=== PATIENT | female | born 1990 | race Caucasian/White ===

== ENCOUNTER 2019-09-16 06:54 | Observation (INO) ==
--- NOTE | 2019-09-04 09:51 | PAT Medication Instructions ---
Medication Instructions Date of Service September 04, 2019 Home Medications Medication Instructions Recorded dicyclomine 10 mg capsule 10 mg PO QID PRN #120 cap 08/29/19 multivitamin 1 tab PO QAM dicyclomine 10 mg capsule 10 mg PO QID PRN DO NOT take the morning of surgery multivitamin 1 tab PO QAM dicyclomine 10 mg capsule 10 mg PO QID PRN Other Notes If you have any questions please call us at [phone] or [phone] or [phone] or [phone]
--- NOTE | 2019-09-05 15:20 | Anesthesiology Consultation ---
Date of Service September 05, 2019 Assessment & Plan (1) Encounter for pre-operative examination: - Check test AM DOS Chart Review Chart Review: Pending: Refer to Additional Notes / Consult section (pending p reop testing (T&S)) and Patient seen in Pre Admission Testing Teaching & Discussion Pre-Anesthesia Teaching/Discussion Notes: Instructed NPO after midnight before surgery,except medications with 15 cc of water. Medication instructions provided according to the PAT guidelines. History Surgery Operation Date: 09/16/19 07:30 Proposed Procedures p Robotic Total Laparoscopic Hysterectomy - Brooke De La Cruz MD Height/Weight Height: 5 ft 6 in Weight: 81.4 kg Allergies Allergy/AdvReac Type Severity Reaction Status Date / Time No Known Drug Allergies Allergy Verified 09/02/19 08:47 Medications Home Medications Medication Instructions Recorded Confirmed Last Taken multivitamin 1 tab PO QAM 07/17/19 09/02/19 Unknown dicyclomine 10 mg capsule 10 mg PO QID PRN #120 cap 08/29/19 09/02/19 Unknown Past Medical History Medical History History of blood transfusion 2009 after childbirth IBS (irritable bowel syndrome) Kidney stones hx/passed without intervention Menorrhagia Migraine Exercise / Class Metabolic Activity II 4-5 Yardwork/Stairs/Walk up hill Past Family History Family History Brother Family history of reaction to anesthesia combative with anesthesia Grandfather (Maternal) Family history of diabetes mellitus Aunt Family history of diabetes mellitus Uncle Family history of diabetes mellitus Grandfather (Paternal) Family history of diabetes mellitus Past Surgical History Surgical History History of incision and drainage infected wisdom tooth History of surgical removal of ganglion cyst left wrist History of wisdom tooth extraction Hx of colonoscopy Hx of esophagogastroduodenoscopy Status post correction of deviated nasal septum Past Anesthesia History No Hx of Anesthesia Complications and No Family Hx of Anesthesia Complications History of PONV No Hx of PONV and Hx of Motion Sickness (occasional ) Social History Smoking Status: Never smoker Do You Dip or Chew Tobacco: No Hx Alcohol Use: No Alcohol type: wine and hard liquor alcohol intake frequency: holidays/special occasions only Hx Substance Use: No substance use type: does not use Review of Systems Patient denies chest pain, shortness of breath, dyspnea on exertion, reflux, cough, wheezing, palpitations. Physical Exam Vital Signs VITALS BP 100/67 P 73 TEMP 98.3 SP02 96%RA RESP 18 PHYSICAL Full neck and c-spine range of motion. Full TMJ range of motion. TMD 4 finger breaths Mallampati Score 2 Dentition: missing molars Lungs: clear throughout to auscultation Cardiac: regular rate and rhythm, no murmurs noted Spine: normal Extremities: no edema Testing Laboratory Results 08/29/19 WBC 6.88 H/H 13.2/39.1 PLT 269
[~2019-09-16 06:54] MED LIST: CEFAZOLIN 2000MG 2,000 MG/15 ML SYR IV SCH; LACTATED RINGER'S 1,000 ML IV SCH
[2019-09-16 08:26] LABS: Pregnancy Test, Serum Negative (Negative)
[2019-09-16] MEDS ORDERED: LIDOCAINE HCL 2% 2 ML VIAL/AMP(20MG/ML) INFIL ONE (08:35)
[2019-09-16] MEDS ORDERED: MIDAZOLAM HCL 1 MG/ML 2ML VIAL ONE (08:35)
[2019-09-16] MEDS ORDERED: ONDANSETRON INJ 2 MG/ML 2 ML VIAL ONE ×2 (08:35→10:48)
[2019-09-16] MEDS ORDERED: ROCURONIUM BROMIDE 10 MG/ML 5 ML VIAL ONE (08:35)
[2019-09-16] MEDS ORDERED: fentaNYL citrate 100 MCG/2 ML VIAL ONE (08:35)
[2019-09-16] MEDS ORDERED: PROPOFOL IV EMULSION 10 MG/ML 20 ML VIAL IV ONE (08:35)
[2019-09-16] MEDS ORDERED: LARYING-O-JET KIT (LTA) ONE (08:35)
--- NOTE | 2019-09-16 08:42 | History & Physical Bridge Note ---
Date of Service September 16, 2019 History & Physical Bridge Note I have examined the patient, reviewed the History & Physical and in the interval since the performance of the History & Physical I have noted the following changes of clinical significance: no changes noted
[2019-09-16] MEDS ORDERED: KETOROLAC 30 MG/ML VIAL IV PRN (08:43)
[2019-09-16] MEDS ORDERED: ACETAMINOPHEN 325 MG TAB PO PRN (08:43)
[2019-09-16] MEDS ORDERED: MEPERIDINE HCL 25 MG/ML CARP IV PRN (08:43)
[2019-09-16] MEDS ORDERED: ONDANSETRON INJ 2 MG/ML 2 ML VIAL IV PRN ×2 (08:43→08:58)
[2019-09-16] MEDS ORDERED: IBUPROFEN 600 MG TAB PO PRN (08:43)
[2019-09-16] MEDS ORDERED: MEPERIDINE HCL 50 MG/ML CARP IV PRN (08:43)
[2019-09-16] MEDS ORDERED: OXYCODONE/ACETAMINOPHEN 5mg/325mg TAB PO PRN ×2 (08:43)
[2019-09-16] MEDS ORDERED: LACTATED RINGER'S 1,000 ML IV SCH (08:45)
[2019-09-16] MEDS ORDERED: METHYLENE BLUE 0.5% 10 ML VIAL ONE (08:45)
[2019-09-16] MEDS ORDERED: ACETAMINOPHEN 1000 MG/100 ML IV IV ONE (08:45)
[2019-09-16] MEDS ORDERED: HYDROmorphone INJ 1 MG/ML SYRINGE IV PRN (08:58)
[2019-09-16] MEDS ORDERED: LABETALOL HCL IV 5 MG/ML 20ML IV PRN (08:58)
[2019-09-16] MEDS ORDERED: NALOXONE HCL 0.4 MG/1 ML VIAL/CARP IV PRN (08:58)
[2019-09-16] MEDS ORDERED: PROMETHAZINE HCL 12.5 MG in SODIUM CHLORIDE 0.9% 50 ML IV PRN (08:58)
[2019-09-16] MEDS ORDERED: ATROPINE SULFATE 0.1 MG/ML 10ML SYR IV PRN (08:58)
[2019-09-16] MEDS ORDERED: FLUMAZENIL 0.1 MG/1 ML 10 ML VIAL IV PRN (08:58)
[2019-09-16] MEDS ORDERED: HYDROmorphone INJ 2 MG/ML SYR/VIAL ONE (09:24)
--- NOTE | 2019-09-16 10:22 | Operative Report ---
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 The bladder was emptied via placement of perez catheter. A V-Care uterine manipulator was placed in the usual manner. Attention was then turned to the abdomen where optical entry was made at the umbilicus without complication. The abdomen was insufflated and the patient was placed in steep Trendelenburg. Under direct visualization, right and left lower quadrant ports were placed without complication. Survey of the abdomen revealed Small uterus, bilateral normal- appearing tubes, normal R ovary, left ovary with involuting corpus luteum (based on appearance and patient being CD2) with adhesion to omental fat on both the L ovary and the L pelvic sidewall; peritoneal windows and thick white patches on peritoneum suggestive of endometriosis. The robot was then docked and surgery proceeded with the surgeon at the console. The ureter was identified on each side and traced along its course into the pelvis. First the omental adhesions were sharply and carefully dissected free of the L pelvic sidewall and ovary, ensuring good access to the structures of interest. Each fallopian tube in turn was elevated, dissected off the mesosalpinx and left attached to the uterine cornu. Each utero-ovarian ligament was ligated and then divided. Each round ligament was ligated and then divided. The anterior leaflets of the broad ligament were dissected to create a bladder flap which was gently mobilized downward below the colpotomy cup ridge. Each uterine artery was skeletonized, ligated, and then divided. Circumferential colpotomy was then completed following the colpotomy cup guide. The cervix, uterus and bilateral tubes were then retrieved en bloc via the vagina. The vaginal cuff was then closed using V-Pia suture in the typical running non-locked fashion. The needle was retrieved through a trocar, and suction/irrigation was then used to remove any debris and ensure good hemostasis at all working sites. After administration of IV Methylene Blue dye, cystoscopy was then utilized to examine the bladder dome which was free of suture or injury. The ureteral orifices were observed until a good strong jet of blue stained urine was seen from each. The bladder was then drained. The robot was then undocked, and abdominal trocar sites were closed using a UR6 at the umbilical fascia and 4-0 monocryl at each of the skin incisions. A dermabond dressing was applied to each site. A final vaginal exam ensured no materials were present in the vagina and the cuff was intact. The patient was then transferred in stable condition to the recovery room. I attest to the content of the Intraoperative Record and any orders documented therein. Any exceptions are noted below.
[2019-09-16] MEDS ORDERED: METOCLOPRAMIDE HCL INJ 5 MG/ML 2 ML VIAL ONE (10:48)
[2019-09-16] MEDS ORDERED: DEXAMETHASONE SOD INJ 4 MG/ML VIAL ONE (10:48)
[2019-09-16] MEDS ORDERED: raNITIdine HCl 25 MG/ML VIAL IV ONE (10:48)
[2019-09-16] MEDS ORDERED: GLYCOPYRROLATE 0.2 MG/ML VIAL ONE (10:48)
[2019-09-16] MEDS ORDERED: KETOROLAC 30 MG/ML VIAL ONE (10:48)
[2019-09-16] MEDS ORDERED: NEOSTIGMINE METHYLSULFATE 5 MG/5 ML SYR ONE (10:48)
--- NOTE | 2019-09-16 11:12 | Anesthesiology Progress Note ---
Date of Service September 16, 2019 Anesthesia Post Procedure Vital Signs Vital Signs: Temp Pulse Pulse Resp BP Pulse Ox 09/16/19 11:00 77 17 106/63 100 09/16/19 10:50 83 12 104/90 100 09/16/19 10:42 36.6 C 66 22 126/84 98 09/16/19 07:32 36.5 C 56 L 20 98/71 L 99 Pain Intensity Abdomen: Pain Intensity: 6 Transfer of Care Handoff Completed per policy Notes Mental Status: alert / awake / arousable Patient Amnestic to Procedure: Yes Nausea / Vomiting: adequately controlled Pain: adequately controlled Airway Patency, RR, SpO2: stable & adequate BP & HR: stable & adequate Hydration State: stable & adequate Anesthetic Complications: no major complications apparent
[2019-09-16 13:52] LABS: Basophils # (auto) 0.01 K/uL (0-0.2); Basophils % (auto) 0.1 %; Eosinophils # (auto) 0.01 K/uL (0-0.5); Eosinophils % (auto) 0.1 %; Hematocrit (blood only) 35.9 % (37-47); Hemoglobin 12.7 g/dL (12.0-16.0); Immature Granulocytes # (auto) 0.02 K/uL (0.00-0.02); Immature Granulocytes % (auto) 0.2 %; Lymphocytes % (auto) 4.7 %; Mean Corpuscular Hgb Conc 35.4 g/dL (32-36); Mean Corpuscular Volume 84.9 fL (80-100); Mean Platelet Volume 8.5 fL (7.4-10.4); Monocytes % (auto) 0.8 %; Neutrophils # (auto) 12.07 K/uL (1.4-6.5); Neutrophils % (auto) 94.1 %; Platelet Count 212 K/uL (130-400); RDW Coefficient of Variation 13.3 % (11.5-14.5); RDW Standard Deviation 40.9 fL (36.4-46.3); Red Blood Count 4.23 M/uL (4.2-5.4); White Blood Count 12.81 K/uL (4.8-10.8)
[2019-09-17] MEDS ORDERED: LR 15ML/HR IV SCH (06:00)
--- NOTE | 2019-09-17 07:49 | Discharge Summary ---
Date of Service September 17, 2019 Discharge Data Procedures Performed Operation Date: 09/16/19 08:50 Actual Procedures p Robotic Total Laparoscopic Hysterectomy with Bilateral Salpingectomy, and - Brooke De La Cruz MD s Cystoscopy - Brooke De La Cruz MD Hospital Course (1) Menorrhagia with irregular cycle: Patient underwent uncomplicated TLH/bilateral salpingectomy / cystoscopy. See op report for details. She met her post op milestones and was discharged to home in good condition on POD#0 with the usual Rx for #20 percocet and f/u in 2 and 6 weeks.
== END 2019-09-16 18:10 | disposition home or self-care (01) ==
LOC: 4S2 06:54 → ASU 06:54
DX: N92.1 Excessive and frequent menstruation with irregular cycle